=== PATIENT | male | born 1960 | race Caucasian/White ===

== ENCOUNTER → 2018-01-04 | Outpatient (CLI) | payer OTHER ==
[~2018-01-04] MED LIST: OXYC-302 PO
== END ==
LOC: CARD 12:22
PROVIDERS: ATTEND Internal Medicine Critical Care Medicine
DX: J44.9 Chronic obstructive pulmonary disease, unspecified (principal)
CPT/HCPCS: 94060; 94618; 94726; 94729

== ENCOUNTER → 2019-01-05 | Outpatient (CLI) | payer OTHER | END | disposition home or self-care (01) | LOC: CFH 10:17 | PROVIDERS: ATTEND Nurse Practitioner Family | DX: J43.2 Centrilobular emphysema (principal); Z87.891 Personal history of nicotine dependence | CPT/HCPCS: G0297 ==

== ENCOUNTER 2019-06-23 12:03 | Day surgery (SDC) | payer OTHER ==
[~2019-06-23] VITALS: Ht 177.8 cm; Wt 65.9 kg
[2019-06-23 12:46] VITALS: BP 123/95
[2019-06-23] MEDS ORDERED: NAPR220C2 PO (12:56)
[2019-06-23] MEDS ORDERED: ALBU8.5H8 INH (12:56)
[2019-06-23] MEDS ORDERED: GUAI12009 PO (12:56)
[2019-06-23] MEDS ORDERED: SODIUM CHLORIDE 0.9% 1,000 ML IV SCH ×2 (12:56→13:50)
[2019-06-23] MEDS ORDERED: ALPR0.5T7 PO (12:56)
[2019-06-23] MEDS ORDERED: MAGN400T36 PO (12:56)
[2019-06-23] MEDS ORDERED: IPRA3AMP30 INH (12:56)
[2019-06-23] MEDS ORDERED: MULT-751 PO (12:56)
[2019-06-23] MEDS ORDERED: BUDE10.22 INH (12:56)
[2019-06-23] MEDS ORDERED: MELA5TAB14 PO (12:56)
[2019-06-23] MEDS ORDERED: TRAZ50TA66 PO (12:56)
[2019-06-23] MEDS ORDERED: FENTANYL PF 100 MCG/2ML ONE (13:07)
[2019-06-23] MEDS ORDERED: MIDAZOLAM 1 MG/ML, 5ML ONE (13:07)
[2019-06-23] MEDS ORDERED: TICAGRELOR 90 MG TABLET ONE (13:07)
[2019-06-23] MEDS ORDERED: HEPARIN 1,000 UNITS/ML, 10ML ONE (13:07)
[2019-06-23] MEDS ORDERED: LIDOCAINE-MPF 1%, 5ML ONE (13:07)
[2019-06-23] MEDS ORDERED: BIVALIRUDIN 250 MG ONE (13:07)
[2019-06-23] MEDS ORDERED: VERAPAMIL 2.5 MG/ML, 2ML ONE (13:07)
== END 2019-06-23 14:50 | disposition home or self-care (01) ==
LOC: CACL 12:03
PROVIDERS: ATTEND Internal Medicine Cardiovascular Disease
DX: I20.0 Unstable angina (principal); J44.9 Chronic obstructive pulmonary disease, unspecified; J96.12 Chronic respiratory failure with hypercapnia; J96.11 Chronic respiratory failure with hypoxia; Z79.899 Other long term (current) drug therapy; Z87.891 Personal history of nicotine dependence; Z99.81 Dependence on supplemental oxygen
CPT/HCPCS: 93458; 99156; C1769; C1894; J1644; J2250; J3010; Q9967; J0583

== ENCOUNTER → 2020-12-04 | Outpatient (CLI) | payer OTHER, MEDICARE ==
[~2020-12-04] MED LIST changes: +ALBU8.5H8 INH; +ALPR0.5T7 PO; +BUDE10.22 INH; +GUAI12009 PO; +IPRA3AMP30 INH; +MAGN400T36 PO; +MELA5TAB14 PO; +MULT-751 PO; +NAPR220C2 PO; -OXYC-302 PO; +OXYC1TAB14 PO; +TRAZ50TA66 PO
== END | disposition home or self-care (01) ==
LOC: CFH 12:31
PROVIDERS: ATTEND Nurse Practitioner Family
DX: R91.1 Solitary pulmonary nodule (principal); J43.9 Emphysema, unspecified; I77.810 Thoracic aortic ectasia; J96.11 Chronic respiratory failure with hypoxia
CPT/HCPCS: 71250